=== PATIENT | female | born 1935 | race Caucasian/White ===

== ENCOUNTER 2016-08-15 15:23 | Outpatient (CLI) | payer MEDICARE | END 2016-08-15 15:24 | disposition home or self-care (01) | LOC: BURLAB 15:23 | PROVIDERS: ATTEND Family Medicine | DX: Z01.812 Encounter for preprocedural laboratory examination (principal) | CPT/HCPCS: 36415; 82565 ==

== ENCOUNTER 2016-08-18 08:29 | Outpatient (CLI) | payer MEDICARE ==
[2016-08-18] MEDS ORDERED: Iopamidol 300 61% 100 ML VIAL FS ONE (09:00)
--- NOTE | 2016-08-18 12:19 | CT ---
CT OF THE ABDOMEN AND PELVIS: Date: 08/18/16 COMPARISON: 09/02/15. HISTORY: 80-year-old female with right lower quadrant pain. TECHNIQUE: Serial axial CT imaging at 5 mm intervals from the lung bases through the pubic symphysis with IV an d oral contrast. Coronal and sagittal reformatted imaging obtained. FINDINGS: Imaged lung bases are unremarkable. Gallbladder is surgically absent. No free intraperitoneal air or fluid. Uterus appears surgically absent. The liver, spleen, pancreas, and adrenal glands are unremarkable. Neither kidney appears obstructed. Bilateral kidneys demonstrate an unremarkable CT appearance. There is no evidence for bowel inflammatory change or bowel obstruction. The appendix is not discret elena visualized on this exam. There is no right lower quadrant inflammatory change seen. Tiny stable hiatal hernia suspected. The vascular structures appear patent. No lymphadenopathy is identified within the abdomen or pelvis. There are degenerative changes involving bilateral sacroiliac joints and there are extensive degener ative changes within the lumbar spine with multilevel facet hypertrophy, disc space narrowing, and d egenerative end plate change. There is dextroscoliosis at the thoracolumbar junction. IMPRESSION: There are numerous incidental/stable findings as detailed above. No acute findings are seen. There i s no evidence for small bowel obstruction, free intraperitoneal air, or bowel inflammatory change. POS: [facility]
== END 2016-08-18 08:30 | disposition home or self-care (01) ==
LOC: BURCT 08:29
PROVIDERS: ATTEND Family Medicine
DX: R10.31 Right lower quadrant pain (principal)
CPT/HCPCS: 74177

== ENCOUNTER 2017-01-09 09:44 | Outpatient (CLI) | payer MEDICARE ==
[2017-01-09 11:24] LABS: ALT (SGPT) 15 U/L (8-55); AST (SGOT) 16 U/L (5-34); Albumin 3.9 g/dL (3.4-4.8); Alkaline Phosphatase 67 U/L (40-150); Anion Gap 13 mmol/L (10-20); BUN (Urea Nitrogen) 19 mg/dL (9.8-20.1); Bilirubin, Total 0.7 mg/dL (0.2-1.2); Calc. Creatinine Clearance 0 mL/min (70-130); Calcium 9.5 mg/dL (7.8-10.44); Carbon Dioxide 29 mmol/L (23-31); Cardiac Risk 2.4 (Less than 4.5); Chloride 105 mmol/L (98-107); Cholesterol 169 mg/dl (< 200 Desired); Estimated GFR-MDRD 74; Globulin 2.5 g/dL (2.4-3.5); Glucose 90 mg/dL (83-110); HDL Cholesterol 69 mg/dL (>60 Neg Risk); LDL Cholesterol, Calculated 81 mg/dL; Potassium 4.9 mmol/L (3.5-5.1); Protein, Total 6.4 g/dL (6.0-8.3); Sodium 142 mmol/L (136-145); Triglycerides 96 mg/dL (Less than 150)
== END 2017-01-09 09:45 | disposition home or self-care (01) ==
LOC: BURLAB 09:44
PROVIDERS: ATTEND Internal Medicine Cardiovascular Disease
DX: I25.10 Atherosclerotic heart disease of native coronary artery without angina pectoris (principal)
CPT/HCPCS: 36415; 80053; 80061

== ENCOUNTER 2017-04-29 08:43 | Emergency (ER) | payer MEDICARE ==
[2017-04-29 09:13] LABS: Bilirubin Negative (Negative); Blood, Urine Trace (Negative); Clarity Clear (Clear); Glucose, Urine (Dipstick) Negative (Negative); Leukocyte Trace (Negative); Nitrite Negative (Negative); Protein, Urine (Dipstick) Negative (Neg-Trace); Specific Gravity, Urine 1.015 (1.005-1.030); Urobilinogen 0.2 mg/dL (0.2-1.0); pH, Urine 6.5 (5.0-9.0)
[2017-04-29 09:14] LABS: Bacteria/HPF Rare-Few HPF (None Seen); Other Microscopic Description C&S SET UP; RBC/HPF 0-3 HPF (0-3); Squamous Epithelial 0-3 HPF (0-3); WBC/HPF 0-3 HPF (0-3)
[2017-04-29] MEDS ORDERED: traMADol HCl 50 MG TAB ONE (09:15)
[2017-04-29] MEDS ORDERED: Ciprofloxacin 500 MG TAB ONE (10:13)
--- NOTE | 2017-04-29 12:09 | CT ---
CT ABDOMEN AND PELVIS WITHOUT CONTRAST: Date: 04-29-17 Technique: Noncontrast CT was done using no oral or IV contrast and a renal stone protocol. Patient p resents with right flank pain and hematuria, as well as a history of constipation. Comparison: CT contrast scan dated 08-17-16. FINDINGS: There are no findings to explain the current symptoms. The lung bases are clear. The liver, spleen, p ancreas, adrenal glands and abdominal aorta showed no acute findings. The right kidney is slightly la rger than the left, but this was true before. No renal stones, hydronephrosis or mass could be seen w ithin the limitation of a noncontrast study. No ureteral calculi were indicated. The bowel shows no obstruction, though there is a considerable amount of fecal material in the colon, especially the right colon. There are no inflammatory changes around bowel or bowel wall thickening. The mesentery was unremarkable. CT PELVIS shows scattered phleboliths but none appeared to be associated with the ureter. No pelvic m asses, fluid collections, or inflammatory changes were seen. Degenerative changes are present in the spine along with significant thoracolumbar scoliosis. IMPRESSION: Mild constipation. No acute findings otherwise to explain the patient's presentation. No adverse soman ge otherwise since the August study. POS: [facility]
== END 2017-04-29 10:27 | disposition home or self-care (01) ==
LOC: BURERS 08:43
DX: N30.01 Acute cystitis with hematuria (principal); K59.00 Constipation, unspecified; K21.9 Gastro-esophageal reflux disease without esophagitis; E78.5 Hyperlipidemia, unspecified; I10 Essential (primary) hypertension
CPT/HCPCS: 74176; 81003; 81015; 87086

== ENCOUNTER 2017-05-19 18:38 | Emergency (ER) | payer MEDICARE ==
[2017-05-19 19:21] LABS: #Basophils 0.1 thou/uL (0.0-0.2); #Eosinphils 0.2 thou/uL (0.0-0.7); #Lymphocytes 1.8 thou/uL (1.20-3.40); #Monocytes 0.5 thou/uL (0.11-0.59); #Neutrophils 4.5 thou/uL (1.40-6.50); %Basophils 0.8 % (0.0-1.0); %Eosinophils 3.3 % (0.0-10.0); %Lymphocytes 24.9 % (21.0-51.0); %Monocytes 7.4 % (0.0-10.0); %Neutrophils 63.5 % (42.0-75.0); Hemoglobin 14.1 g/dL (12.0-16.0); Mean Corpuscular HGB CONC 33.3 g/dL (32.0-36.0); Mean Corpuscular Hemoglobin 30.8 pg (27.0-31.0); Mean Corpuscular Volume 92.4 fl (81.0-99.0); Mean Platelet Volume 7.9 fL (7.4-10.4); Platelet Count 151 thou/uL (130-400); RBC Distribution Width 11.5 % (11.5-14.5); Red Blood Cell (RBC) Count 4.59 mill/uL (4.20-5.40)
[2017-05-19 19:37] LABS: ALT (SGPT) 255 U/L (8-55); AST (SGOT) 288 U/L (5-34); Albumin 3.9 g/dL (3.4-4.8); Alkaline Phosphatase 128 U/L (40-150); Anion Gap 14 mmol/L (10-20); BUN (Urea Nitrogen) 19 mg/dL (9.8-20.1); Bilirubin, Total 1.5 mg/dL (0.2-1.2); Calc. Creatinine Clearance 0 mL/min (70-130); Calcium 9.1 mg/dL (7.8-10.44); Carbon Dioxide 25 mmol/L (23-31); Chloride 105 mmol/L (98-107); Estimated GFR-MDRD 81; Glucose 91 mg/dL (83-110); Lipase 166 U/L (8-78); Potassium 3.6 mmol/L (3.5-5.1); Protein, Total 6.9 g/dL (6.0-8.3); Sodium 140 mmol/L (136-145)
[2017-05-19 19:38] LABS: CKMB 1.1 ng/mL (0-6.6); Troponin I Less than 0.010 ng/mL (< 0.028)
--- NOTE | 2017-05-19 20:49 | RAD ---
PORTABLE CHEST 05/19/17 An AP portable film at 1913 is compared with a 09/02/15 study. Mild cardiomegaly is about the same. There are no congestive findings or pleural effusions. No lobar consolidations, edema, or congestion was seen. Minor left hilar prominence is probably due to positio lynette of the patient. Clips are noted in the left axilla from a prior procedure. IMPRESSION: Mild cardiomegaly with no change since last year's study. POS: HOME
--- NOTE | 2017-05-19 22:37 | CT ---
CT ABDOMEN AND PELVIS WITH CONTRAST 05/19/17 Comparison is made with a 08/17/16 study done at [facility]. The primary finding on this study is dilation of both intrahepatic and extrahepatic bile ducts. This is a new finding compared to the August study. The common bile duct is dilated almost all the way to i ts termination measuring up to about 10 mm in spots. While this is acceptable in a post cholecystecto my patient, the dilation of intrahepatic duct is a new finding. There is no gross cause for biliary o bstruction. No obvious pancreatic mass was seen. No calcifications were seen within the common bile d uct. No hepatic masses were indicated. The lung bases are clear. The small hiatal hernia is noted. The spleen is normal in size. It may be m arginally hazy around the pancreas, but the findings are not diagnostic and no gross pancreatic mass was appreciated. The kidneys contain no solid mass or hydronephrosis. There may be a subcentimeter c yst or two in each kidney. No adrenal masses were seen. The aorta shows no aneurysm. Bowel is nondistended. There is no sign of obstruction or inflammatory changes around bowel. No free air or free fluid was seen. CT of the pelvis showed no pelvic masses, fluid collections, or inflammatory changes. Degenerative ch anges are present in the spine along with scoliosis. IMPRESSION: Interval appearance of dilated intrahepatic and extrahepatic bile ducts. Etiology is not clear on s study but the finding is decidedly different than the August 2016 CT scan. Findings discussed with Dr. Henderson at 2045. POS: HOME
[2017-05-20 13:10] LABS: HBCM Index 0.09 S/CO (0-0.79); HBSAg Index 0.18 S/CO (0-0.99); Hep A IgM AB Non-Reactive (NonReactive); Hep A IgM S/CO 0.16 S/CO (0-0.79); Hep B Surf Ag Non-Reactive S/CO (NonReactive); Hep C IgG Ab Non-Reactive (NonReactive); Hep C Index 0.32 S/CO (0-0.79); Hepatitis B Core IGM Abs Non-Reactive (NonReactive)
== END 2017-05-19 21:10 | disposition home or self-care (01) ==
LOC: BURERS 18:38
DX: K85.90 Acute pancreatitis without necrosis or infection, unspecified (principal); R79.89 Other specified abnormal findings of blood chemistry; B34.9 Viral infection, unspecified; K21.9 Gastro-esophageal reflux disease without esophagitis; E78.5 Hyperlipidemia, unspecified; I10 Essential (primary) hypertension; Z79.899 Other long term (current) drug therapy; Z79.82 Long term (current) use of aspirin
CPT/HCPCS: 71010; 74177; 80053; 80074; 82553; 83690; 84484; 85025; 93005; 94760; 96360

== ENCOUNTER 2017-08-25 09:01 | Outpatient (CLI) | payer MEDICARE ==
--- NOTE | 2017-08-25 21:05 | CT ---
CT ABDOMEN AND PELVIS WITH CONTRAST: 08/25/17 Comparison is made with a 05/19/17 CT scan. Axial slices were acquired after giving oral and IV contr ast. Coronal reconstructions were then done. The lung bases are clear. There are no effusions. The in trahepatic ductal dilations seen in the liver previously has resolved. There is some air in this blessing ent's biliary tree. My presumption is that she has been instrumented and this may be her usual postpr ocedure appearance. Compare with clinical history. No longer does one see dilation of the common bile duct in the pancreatic head. There is probably some air in the common bile duct. No hepatic masses o r seen. The spleen, pancreas, adrenal glands, aorta and kidneys showed no acute findings. A subcentimeter cys t is seen in the lower pole of the right kidney. There is no mesenteric adenopathy. No free air or fr ee fluid was present. there is no dilation of bowel or inflammatory change around bowel. No bowel wal l thickening was seen. CT of the pelvis showed no pelvic masses, fluid collections, or inflammatory changes. Final findings is a small hiatal hernia. IMPRESSION: 1. Resolution of dilated biliary system. There is now a small amount of air in some of the intra hepatic ducts. 2. Small hiatal hernia. POS: HOME
== END 2017-08-25 09:02 | disposition home or self-care (01) ==
LOC: BURCT 09:01
PROVIDERS: ATTEND Internal Medicine Gastroenterology
DX: K83.1 Obstruction of bile duct (principal); K83.8 Other specified diseases of biliary tract; K44.9 Diaphragmatic hernia without obstruction or gangrene
CPT/HCPCS: 74177

== ENCOUNTER 2017-11-05 15:59 | Outpatient (CLI) | payer MEDICARE ==
--- NOTE | 2017-11-05 22:05 | RAD ---
SACRUM AND COCCYX: 11/05/17 One of the upper coccygeal segment seems displaced posteriorly a bit compared to that which would be expected. An actual fracture was not appreciated. The sacrum itself appeared intact. The SI joints we re symmetrical. Degenerative disc disease is noted in particular at L4-L5. IMPRESSION: Slight posterior displacement of one of the coccygeal segments. POS: HOME
== END 2017-11-05 16:00 | disposition home or self-care (01) ==
LOC: BURRAD 15:59
PROVIDERS: ATTEND Family Medicine
DX: S30.0XXA Contusion of lower back and pelvis, initial encounter (principal); S33.2XXA Dislocation of sacroiliac and sacrococcygeal joint, initial encounter
CPT/HCPCS: 72220

== ENCOUNTER 2018-01-04 16:00 | Outpatient (CLI) | payer MEDICARE ==
--- NOTE | 2018-01-04 20:31 | RAD ---
CHEST TWO VIEWS: 01/04/2018 COMPARISON: Portable film from 05/19/2017. FINDINGS: The heart is normal in size. The lungs are clear. No acute infiltrate or effusion is seen. There i s no vascular congestion or edema. The mediastinum appears normal. IMPRESSION: No acute thoracic findings. POS: HOME
--- NOTE | 2018-01-04 20:33 | RAD ---
LEFT WRIST THREE VIEWS: 01/04/2018 FINDINGS: No fracture, dislocation, or carpal fracture is seen. The distance between the scaphoid and lunate i s upper normal, at nearly 2.5 mm. Beyond 2.5 mm would raise the question of scapholunate dissociatio n. Otherwise, there are no findings of trauma, recent or remote. IMPRESSION: Scapholunate distance upper normal. POS: HOME
== END 2018-01-04 16:01 | disposition home or self-care (01) ==
LOC: BURRAD 16:00
PROVIDERS: ATTEND Family Medicine
DX: M25.532 Pain in left wrist (principal); J40 Bronchitis, not specified as acute or chronic
CPT/HCPCS: 71046

== ENCOUNTER 2018-05-31 12:51 | Emergency (ER) | payer MEDICARE ==
[2018-05-31] MEDS ORDERED: Cephalexin 500 MG CAP ONE (13:40)
--- NOTE | 2018-05-31 14:31 | RAD ---
RIGHT FOOT 3 VIEWS: Date: 05/31/18 COMPARISON: None. HISTORY: Injury, trauma, pain. FINDINGS: Postoperative clips are seen medial to the first metatarsal head and lateral to the mid shaft second metatarsal. There is an old fracture of the second metatarsal shaft. There are marked degenerative ch anges at the first metatarsophalangeal joint. Lateral imaging demonstrates enthesophyte formation at the insertion of the Achilles tendon and origi n of the plantar aponeurosis. There is bone loss with corticated margins involving the lateral aspect of the fifth metatarsal head suggesting prior trauma or prior surgery. Lobulated soft tissue density of the medial aspect great toe noted suggesting soft tissue nodularity. Clinical correlation required. There is an obliquely oriented lucency involving the lateral aspect of the distal second proximal pha lanx suggesting nondisplaced fracture. IMPRESSION: Findings suggesting a nondisplaced fracture involving the distal aspect of the second proximal phalan x laterally. Additional chronic findings as described above. POS: [facility]
== END 2018-05-31 13:42 | disposition home or self-care (01) ==
LOC: BURERS 12:51
DX: S90.111A Contusion of right great toe without damage to nail, initial encounter (principal); X58.XXXA Exposure to other specified factors, initial encounter

== ENCOUNTER 2018-09-20 10:29 | Outpatient (CLI) | payer MEDICARE ==
--- NOTE | 2018-09-20 21:08 | RAD ---
CHEST TWO VIEWS: Date: 09-20-18 Comparison: 01-04-18 FINDINGS: The heart is normal in size and the lungs are clear. No acute infiltrate or effusion was seen. There is no vascular congestion or edema. The bony structures appeared intact. IMPRESSION: No acute thoracic finding. POS: HOME
== END 2018-09-20 10:30 | disposition home or self-care (01) ==
LOC: BURRAD 10:29
PROVIDERS: ATTEND Nurse Practitioner Family
DX: R05 Cough (principal)
CPT/HCPCS: 71046

== ENCOUNTER 2019-03-10 12:20 | Outpatient (CLI) | payer MEDICARE ==
[2019-03-10 17:27] LABS: Bilirubin Negative (Negative); Blood, Urine Negative (Negative); Glucose, Urine (Dipstick) Negative (Negative); Leukocyte Negative (Negative); Nitrite Negative (Negative); Protein, Urine (Dipstick) Negative (Neg-Trace); Urobilinogen 0.2 mg/dL (Less than 2)
[2019-03-10 17:33] LABS: Clarity Turbid (Clear)
--- NOTE | 2019-03-10 17:43 | ULT ---
ULTRASOUND OF THE BLADDER 03/10/19 Ultrasonography of the bladder was done in this patient with urinary incontinence. No intraluminal mass was seen. No bladder diverticula were seen. The bladder wall thickness is normal , around 2 mm. Bladder was not overly distended to begin with and voided almost completely at the end of the exam. IMPRESSION: No specific findings of concern. POS: HOME
[2019-03-10 18:06] LABS: Bacteria/HPF None Seen HPF (None Seen); RBC/HPF None Seen HPF (0-3); Squamous Epithelial 0-3 HPF (0-3); WBC/HPF None Seen HPF (0-3)
== END 2019-03-10 12:21 | disposition home or self-care (01) ==
LOC: BURULT 12:20
PROVIDERS: ATTEND Family Medicine
DX: R32 Unspecified urinary incontinence (principal)
CPT/HCPCS: 76856; 81001; 87086

== ENCOUNTER 2021-12-26 14:05 | Outpatient (CLI) | payer MEDICARE | END 2021-12-26 14:06 | disposition home or self-care (01) | LOC: BURRAD 14:05 | PROVIDERS: ATTEND Family Medicine | DX: M54.50 Low back pain, unspecified (principal) | CPT/HCPCS: 72110 ==

== ENCOUNTER 2022-09-08 11:08 | Emergency (ER) | payer MEDICARE ==
[2022-09-08] MEDS ORDERED: traMADol HCl 50 MG TAB ONE (11:31)
[2022-09-08] MEDS ORDERED: Ondansetron ODT 4 MG TAB ONE (11:31)
== END 2022-09-08 12:37 | disposition home or self-care (01) ==
LOC: BURERS 11:08
DX: S52.125A Nondisplaced fracture of head of left radius, initial encounter for closed fracture (principal); M25.561 Pain in right knee; K21.9 Gastro-esophageal reflux disease without esophagitis; I10 Essential (primary) hypertension; E78.00 Pure hypercholesterolemia, unspecified; W18.30XA Fall on same level, unspecified, initial encounter; Z85.3 Personal history of malignant neoplasm of breast; Z79.899 Other long term (current) drug therapy
CPT/HCPCS: 29105; 72100; 72170; Q0162